=== PATIENT | female | born 1980 | race Caucasian/White ===

== ENCOUNTER 2020-02-21 18:30 | Emergency (ER) | payer OTHER, SELFPAY ==
--- NOTE | ~2020-02-21 | XR_ITS ---
EXAMINATION: XR ankle RT min 3V INDICATION: Right ankle pain TECHNIQUE: Four views of the right ankle are obtained. COMPARISON: None available FINDINGS: There is no fracture, dislocation, or subluxation. The bones and joint spaces are normal. T here is mild anterior soft tissue swelling of ankle. IMPRESSION: 1. Soft tissue swelling without acute osseous abnormality. Reviewed, dictated and finalized at location A.
--- NOTE | ~2020-02-21 | XR_ITS ---
EXAMINATION: XR knee RT 3V DATE: 02/21/2020 20:23 INDICATION: Right knee pain TECHNIQUE: Three views of the right knee were obtained. COMPARISON: None. FINDINGS: Alignment is normal. No fracture or osteochondral lesion. Joint spaces are normal with no e rosions. No joint effusion/synovitis. Soft tissues are unremarkable. IMPRESSION: 1. No acute osseous abnormality. Reviewed, dictated and finalized at location A.
[2020-02-21 18:43] VITALS: BP 108/69; PULSE 107; RESP 18; TEMP 36.5; O2SAT 98
[2020-02-21] MEDS: TETANUS,DIPHTHERIA,AC PERTUSSIS ADULT (0.5 ML) BOOSTRIX IM (20:13)
[2020-02-21 20:33] VITALS: BP 120/73; PULSE 73; RESP 16; O2SAT 98
--- NOTE | 2020-02-21 21:01 | ED.WOUNDLAC ---
HPI - Wound/Laceration General Chief Complaint: Wound/Laceration Stated Complaint: FALL, MULTIPLE WOUNDS Time Seen by Provider: 02/21/20 19:04 Source: patient Mode of arrival: wheelchair Limitations: no limitations History of Present Illness HPI narrative: This is a 40 year old female that presents to the ER for a fall this afternoon with right ankle pain. Reports she slipped and fell and twisted her right ankle. Reports since she has had increasing pain in the ankle and some superficial abrasions. Also reports an abrasion and some pain to the right knee. Denies hitting her head, loss of consciousness, other injuries, numbness or weakness. Related Data Home Medications Medication Instructions Recorded Confirmed No Home Medications 02/21/20 02/21/20 Allergies Allergy/AdvReac Type Severity Reaction Status Date / Time clonazepam Allergy Unknown Unknown Verified 02/21/20 18:50 lorazepam Allergy Unknown Unknown Unverified 02/21/20 18:50 Review of Systems Review of Systems: Narrative: CONSTITUTIONAL: Denies fever SKIN: Reports abrasions MUSCULOSKELETAL: Reports joint pain, and myalgia. NEUROLOGIC: Denies numbness All systems reviewed & are unremarkable except as noted in HPI and below PMFSH Past Medical History Medical History (Updated 02/21/20 @ 21:32 by Dorota Wharton PA-C) History of depression History of migraine Surgical History Surgical History (Updated 02/21/20 @ 21:31 by Dorota Wharton PA-C) History of hysterectomy History of skin graft Social History Social History (Updated 02/21/20 @ 21:31 by Dorota Wharton PA-C) Substance use type: marijuana Gender identity (if verbalized by the patient): Female Exam Narrative: Exam Narrative: GENERAL: Well-appearing, well-nourished, and in no acute distress. HEAD: Normocephalic, atraumatic. EYES: EOMI. EXTREMITIES: Normal range of motion. No edema or obvious deformity. Normal DP pulses. Normal sensation SKIN: Warm, dry, no rash. Superficial abrasions to the right ankle, knee and right wrist NEURO: No focal deficits. Alert and oriented x3. PSYCH: Normal mood and affect Course Vital Signs Vital signs: Vital Signs Temperature 97.7 F 02/21/20 18:43 Pulse Rate 107 H 02/21/20 18:43 Respiratory Rate 18 02/21/20 18:43 Blood Pressure 108/69 02/21/20 18:43 Pulse Oximetry 98 02/21/20 18:43 Temperature 97.7 F 02/21/20 18:43 Pulse Rate 73 02/21/20 20:33 Respiratory Rate 16 02/21/20 20:33 Blood Pressure 120/73 02/21/20 20:33 Pulse Oximetry 98 02/21/20 20:33 MDM - Wound/Laceration MDM Narrative Medical decision making narrative: Patient presents the emergency department after a fall today with right ankle pain. Also reports right knee pain. Right ankle and knee x-rays are without acute abnormalities. Patient has superficial abrasions which were cleansed and covered with bandages. Patient was educated on wound care. She was updated on tetanus. She was given an Hola wrap and reports she will use her walker at home. Patient is to follow-up with her primary care doctor. Patient stable and felt appropriate for further outpatient evaluation. She was given warnings to return to the ER Imaging Data Radiologist's impression: ITS Impressions Ankle X-Ray 02/21/20 20:38 IMPRESSION: 1. Soft tissue swelling without acute osseous abnormality. Knee X-Ray 02/21/20 20:41 IMPRESSION: 1. No acute osseous abnormality. Critical Care Time Critical Care Time Critical Care Time: No Discharge Plan Discharge Clinical Impression: Acute right ankle pain, Abrasion Patient Disposition: Home, Self-Care Condition: Stable Instructions: Ankle Sprain (ED), Abrasion (ED) Additional Instructions: Return to the emergency department if you experience fever, redness and swelling of your wounds, abnormal drainage from your wounds, or any other symptoms that are concerning to you Clean the wounds with mi
--- NOTE | 2020-02-21 21:24 | PC.NURSE ---
4' Hola wrap to right ankle---abrasions cleaned and dressed by Carolynm/[facility]. Patient and spouse refusing crutches-she has cane and walker at home [facility]level aware and in agreement
[2020-02-21 21:25] VITALS: BP 114/79; PULSE 79; RESP 16; O2SAT 97
== END 2020-02-21 21:41 | disposition home or self-care (01) ==
PROVIDERS: Emergency Provider Emergency Medicine; PCP Family Medicine
DX: M25.571 Pain in right ankle and joints of right foot (principal); S90.511A Abrasion, right ankle, initial encounter; W01.0XXA Fall on same level from slipping, tripping and stumbling without subsequent striking against object, initial encounter; Z23 Encounter for immunization; F32.9 Major depressive disorder, single episode, unspecified
CPT/HCPCS: 73562; 73610; 90471; 90715; 99284; A9270